=== PATIENT | female | born 1940 | race Caucasian/White ===

== ENCOUNTER 2018-11-20 11:06 | Emergency (ER) | payer OTHER ==
[2018-11-20] MEDS ORDERED: TETANUS & DIPHTHERIA TOX,ADULT 0.5 ML VIAL ONE (12:37)
--- NOTE | 2018-11-20 13:33 | RAD REPORT ---
EXAM DESCRIPTION: CT - [id number] - 11/20/2018 12:48 pm CLINICAL HISTORY: Fall, head and neck injury COMPARISON: None. TECHNIQUE: Axial 5 mm thick images of the head were obtained. Axial 2 mm thick images of the cervic al spine were obtained with sagittal and coronal reconstruction images generated and reviewed. All CT scans are performed using dose optimization technique as appropriate and may include automated exposure control or mA/KV adjustment according to patient size. FINDINGS: No intracranial hemorrhage, mass, edema or acute intracranial finding. No suspicion for acute infarct ion. No extra-axial fluid collections. Mastoid air cells and paranasal sinuses are clear. No globe or orbit abnormality seen. Nasal bone fracture is suspected but not fully imaged. Moderate atrophy and chronic ischemic changes are present. Ventricular size is in proportion. Approximately 20% wedging of the C5 body is noted age unknown. C3, C4 and C6 shows slight wedging as well. No subluxation abnormality. C4-5, C5-6 and C6-7 disc space narrowing present. Prominent facet j oint degenerative changes are present. No acute fracture lines are seen. No lytic, sclerotic or expan sile destructive process. No paraspinal mass or hematoma. IMPRESSION: Atrophy and chronic ischemic changes are present with no acute intracranial finding. Suspected nasal bone fracture with facial bones only partially imaged. Prominent cervical spine degenerative changes are present. There is wedging of the C3-C6 bodies most notable at C5. No acute fracture line seen. Posterior wall height is preserved and no encroachment in to the central canal. Wedge configuration is likely chronic. If the patient has persistent neck pain, MR imaging could be p erformed.
--- NOTE | 2018-11-20 13:56 | EDPHYS ---
Physician Documentation [facility] Name: Darlin Clark Age: 78 yrs Sex: Female : 1940 Arrival Date: 11/20/2018 Time: 11:07 Bed 2 Private MD: Deejay Marinelli ED Physician Ye Lambert HPI: 11/20 13:49 This 78 yrs old Female presents to ER via Wheelchair with complaints of Fall kdr Injury. 13:49 Details of fall: The patient fell from an upright position, while walking. Onset: The kdr symptoms/episode began/occurred suddenly, just prior to arrival. Associated injuries: The patient sustained Face, hands and knees. Severity of symptoms: At their worst the symptoms were mild, in the emergency department the symptoms are unchanged. The patient has not experienced similar symptoms in the past. The patient has not recently seen a physician. The patient states that she was coming home after a long walk and tripped on the sidewalk striking her face on the ground. She had no LOC or other injury.. Historical: - Allergies: 11:28 Codeine; iw - Home Meds: 11:28 Valium Oral [Active]; Celexa Oral [Active]; iw - PSHx: 11:28 bariatric surgery; Tubal ligation; iw - Immunization history:: Adult Immunizations up to date. - Social history:: Smoking status: Patient/guardian denies using tobacco, Patient/guardian denies using alcohol. - Immunization history: Last tetanus immunization: unknown. - Ebola Screening: : Patient negative for fever greater than or equal to 101.5 degrees Fahrenheit, and additional compatible Ebola Virus Disease symptoms Patient denies exposure to infectious person Patient denies travel to an Ebola-affected area in the 21 days before illness onset. ROS: 13:49 Constitutional: Negative for fever, chills, and weight loss, Eyes: Negative for injury, kdr pain, redness, and discharge, Neck: Negative for injury, pain, and swelling, Cardiovascular: Negative for chest pain, palpitations, and edema, Respiratory: Negative for shortness of breath, cough, wheezing, and pleuritic chest pain, Abdomen/GI: Negative for abdominal pain, nausea, vomiting, diarrhea, and constipation, Back: Negative for injury and pain, : Negative for injury, bleeding, discharge, and swelling, MS/Extremity: Negative for injury and deformity, Skin: Negative for rash, and discoloration - she does have multple abrasions ot her hands and knees along with her face and nose Neuro: Negative for headache, weakness, numbness, tingling, and seizure activity. Psych: Negative for depression, anxiety, suicide ideation, homicidal ideation, and hallucinations, Allergy/Immunology: Negative for hives, rash, and allergies, Endocrine: Negative for neck swelling, polydipsia, polyuria, polyphagia, and marked weight changes, Hematologic/Lymphatic: Negative for swollen nodes, abnormal bleeding, and unusual bruising. Exam: 13:49 Constitutional: This is a well developed, well nourished patient who is awake, alert, kdr and in no acute distress. Head/Face: Normocephalic, atraumatic. Eyes: Pupils equal round and reactive to light, extra-ocular motions intact. Lids and lashes normal. Conjunctiva and sclera are non-icteric and not injected. Cornea within normal limits. Periorbital areas with no swelling, redness, or edema. Neck: Trachea midline, no thyromegaly or masses palpated, and no cervical lymphadenopathy. Supple, full range of motion without nuchal rigidity, or vertebral point tenderness. No Meningismus. Chest/axilla: Normal chest wall appearance and motion. Nontender with no deformity. No lesions are appreciated. 13:49 ENT: Nose: Nasal septum: no septal hematoma appreciated. Vital Signs: 11:17 BP 129 / 72; Pulse 65; Resp 18; Temp 98.0(TE); Pulse Ox 98% on R/A; Weight 65.77 kg; hj Height 5 ft. 2 in. (157.48 cm); Pain 8/10; 11:17 Body Mass Index 26.52 (65.77 kg, 157.48 cm) [place] Coma Score: 11:17 Eye Response: spontaneous(4). Verbal Response: oriented(5). Motor Response: obeys commands(6). Total: 15. Trauma Score (Adult): 11:17 Eye Response: spontaneous(1); Verbal Response: oriented(1); Motor Response: obeys commands(2); Systolic BP: > 89 mm Hg(4); Respiratory Rate: 10 to 29 per min(4); [place] Score: 15; Trauma Score: 12 MDM: 13:49 Data reviewed: vital signs, nurses notes, radiologic studies. Counseling: I had a kdr detailed discussion with the patient and/or guardian regarding: the historical points, exam findings, and any diagnostic results supporting the discharge/admit diagnosis, radiology results, the need for outpatient follow up. 13:55 Patient medically screened. [facility] 11/20 12:18 Order name: CT Head C Spine; Complete Time: 13:49 kdr 11/20 12:19 Order name: Misc. 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 Exp: 08/11/2020. Lot #: [id number]. } Route: IM; Site: right deltoid; 12:36 Follow up: Response: No adverse reaction Disposition: 11/20/18 13:55 Discharged to Home. Impression: Other slipping, tripping and stumbling and falls, Fracture of nasal bones, Superficial injury of head. - Condition is Stable. - Discharge Instructions: Head Injury, Adult, Abrasion, [id number], Nasal Fracture, [id number]. - Prescriptions for Diclofenac Sodium 75 mg Oral Tablet, Delayed Release (E.C.) - take 1 tablet by ORAL route 2 times per day; 15 tablet. - Medication Reconciliation Form, Thank You Letter form. - Follow up: Deejay Marinelli MD; When: 2 - 3 days; Reason: If symptoms return, Further diagnostic work-up, Recheck today's complaints, Continuance of care, Re-evaluation by your physician. - Problem is new. - Symptoms have improved. Signatures: Dispatcher [employer] EDMS Ye Lambert MD MD kdr Flora White RN RN Yehuda Shepherd RN RN Corrections: (The following items were deleted from the chart) 14:28 13:55 11/20/2018 13:55 Discharged to Home. Impression: Other slipping, tripping and hj stumbling and falls; Fracture of nasal bones; Superficial injury of head. Condition is Stable. Forms are Medication Reconciliation Form, Thank You Letter, Antibiotic Education, Prescription Opioid Use. Follow up: Deejay Marinelli; When: 2 - 3 days; Reason: If symptoms return, Further diagnostic work-up, Recheck today's complaints, Continuance of care, Re-evaluation by your physician. Problem is new. Symptoms have improved. kdr
--- NOTE | 2018-11-20 13:56 | ER ---
Nurse's Notes [facility] Name: Darlin Clark Age: 78 yrs Sex: Female : 1940 Arrival Date: 11/20/2018 Time: 11:07 Bed 2 Private MD: Deejay Marinelli Diagnosis: Other slipping, tripping and stumbling and falls;Fracture of nasal bones;Superficial injury of head Presentation: 11/20 11:15 Presenting complaint: Patient states: was out walking on side walk, had walked 2 miles, iw was tired, stumbled over a crack in side walk, fell to face, and knees, denies LOC, not on blood thinners, swelling noted to bridge of nose, large abrasion to tip of nose, matted blood in hair but no identifiable laceration to head. Mechanism of Injury: Fall from standing position. Trauma event details: Injury occurred in the [facility], Injury occurred: at home. Injury occurred: November 20, 2018. 11:15 Acuity: CADE 3 iw 11:15 Method Of Arrival: Wheelchair iw 11:15 Transition of care: patient was not received from another setting of care. Onset of hj symptoms was November 20, 2018. 11:21 Risk Assessment: Do you want to hurt yourself or someone else? Patient reports no hj desire to harm self or others. Initial Sepsis Screen: Does the patient meet any 2 criteria? No. Patient's initial sepsis screen is negative. Does the patient have a suspected source of infection? No. Patient's initial sepsis screen is negative. Care prior to arrival: None. Triage Assessment: 11:15 General: Appears in no apparent distress. uncomfortable, Behavior is calm, cooperative, hj appropriate for age. Trauma Activation: Not Applicable Physician: ED Physician; Name: ; Notified At: ; Arrived At: Physician: General Surgeon; Name: ; Notified At: ; Arrived At: Physician: Radiology; Name: ; Notified At: ; Arrived At: Physician: Respiratory; Name: ; Notified At: ; Arrived At: Physician: Lab; Name: ; Notified At: ; Arrived At: Trauma Activation: Not Applicable Physician: ED Physician; Name: ; Notified At: ; Arrived At: Physician: General Surgeon; Name: ; Notified At: ; Arrived At: Physician: Radiology; Name: ; Notified At: ; Arrived At: Physician: Respiratory; Name: ; Notified At: ; Arrived At: Physician: Lab; Name: ; Notified At: ; Arrived At: Historical: - Allergies: : Codeine; iw - Home Meds: Valium Oral [Active]; Celexa Oral [Active]; iw - PSHx: : bariatric surgery; Tubal ligation; iw - Immunization history:: Adult Immunizations up to date. - Social history:: Smoking status: Patient/guardian denies using tobacco, Patient/guardian denies using alcohol. - Immunization history: Last tetanus immunization: unknown. - Ebola Screening: : Patient negative for fever greater than or equal to 101.5 degrees Fahrenheit, and additional compatible Ebola Virus Disease symptoms Patient denies exposure to infectious person Patient denies travel to an Ebola-affected area in the 21 days before illness onset. Screenin:24 Abuse screen: Denies threats or abuse. Denies injuries from another. Nutritional hj screening: No deficits noted. Tuberculosis screening: No symptoms or risk factors identified. Fall Risk Fall in past 12 months (25 points). Primary Survey: 11:18 NO uncontrolled hemorrhage observed. A: The patient is alert. Airway: patent, No hj supplemental oxygen in use on arrival. Oral cavity: gag reflex present, Trachea midline. Breathing/Chest: Respiratory pattern: regular, Respiratory effort: spontaneous, unlabored, Breath sounds: clear, Chest inspection: symmetrical rise and fall of the chest. Circulation: Cardiac rhythm: Heart tones present. Pulses: palpable . Skin color: pink, Skin temperature: warm, dry. Disability Alert. Exposure/Environment: All clothing and personal items were removed. Forensic evidence collection is not deemed to be indicated at this time. Items placed in patient belonging bag. There is evidence of uncontrolled external hemorrhage. Provider notified immediately. Methods to control bleeding applied. Obvious injury(ies) are noted at this time: nose, knees A warming method has been applied: A warm blanket has been provided to the patient. Reassessment Airway Airway Patent Oxygen No O2 Oral cavity +Gag reflex Trachea Midline Breathing/Chest Respiratory pattern Regular Respiratory effort Spontaneous Unlabored Breath sounds Clear Chest inspection Symmetrical Circulation Heart rhythm Sinus rhythm Heart tones Present Pulses Palpable Color Phil [place] Temperature Warm Dry Disability Alert. Secondary Survey: 11:23 HEENT: Face Nose: bleeding noted deformity noted bridge of nose and apex of the nose. hj Gastrointestinal: No deficits noted. : No signs and/or symptoms were reported regarding the genitourinary system. Musculoskeletal: Reports pain in right leg and left leg. Injury Description: Skin tears. Vital Signs: 11:17 BP 129 / 72; Pulse 65; Resp 18; Temp 98.0(TE); Pulse Ox 98% on R/A; Weight 65.77 kg; hj Height 5 ft. 2 in. (157.48 cm); Pain 8/10; 11:17 Body Mass Index 26.52 (65.77 kg, 157.48 cm) hj [place] Coma Score: 11:17 Eye Response: spontaneous(4). Verbal Response: oriented(5). Motor Response: obeys hj commands(6). Total: 15. Trauma Score (Adult): 11:17 Eye Response: spontaneous(1); Verbal Response: oriented(1); Motor Response: obeys hj commands(2); Systolic BP: > 89 mm Hg(4); Respiratory Rate: 10 to 29 per min(4); [place] Score: 15; Trauma Score: 12 ED Course: 11:07 Patient arrived in ED. rg4 11:08 Deejay Marinelli MD is Private Physician. rg4 11:10 Yehuda Shepherd, DOC is Primary Nurse. hj 11:21 Arm band placed on right wrist. hj 11:22 Patient has correct armband on for positive identification. Placed in gown. Bed in low hj position. Call light in reach. Side rails up X 1. Adult w/ patient. 11:23 Ye Lambert MD is Attending Physician. kdr 11:23 Thermoregulation: warm blanket given to patient. hj 11:23 Patient maintains SpO2 saturation greater than 95% on room air. hj 11:26 Triage completed. iw 12:45 CT completed. Patient tolerated procedure well. Patient moved to CT via stretcher. sw Patient moved back from CT. 12:48 CT Head C Spine In Process Unspecified. EDMS 13:53 Deejay Marinelli MD is Referral Physician. kdr 14:26 No provider procedures requiring assistance completed. Patient did not have IV access hj during this emergency room visit. 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 Exp: hj 08/11/2020. Lot #: [id number]. } Route: IM; Site: right deltoid; 12:36 Follow up: Response: No adverse reaction hj Intake: 14:27 PO: 50ml; Total: 50ml. hj Output: 14:27 Urine: 100ml (Voided); Total: 100ml. hj Outcome: 13:55 Discharge ordered by . kdr 14:26 Discharged to home ambulatory, with family. hj 14:26 Condition: stable 14:26 Discharge instructions given to patient, family, Instructed on discharge instructions, follow up and referral plans. medication usage, wound care, Demonstrated understanding of instructions, follow-up care, medications, wound care, Prescriptions given X 1. 14:27 Patient's length of stay was not longer than 2 hours. hj 14:28 Patient left the ED. hj Signatures: Dispatcher [employer] EDMS Ye Lambert MD MD kdr Williams, Irene, Gloria Brooke RN, Henry, RN RN hj Garcia, Rubi rg4
== END 2018-11-20 14:28 | disposition home or self-care (01) ==
LOC: ER 11:06
DX: S00.90XA Unspecified superficial injury of unspecified part of head, initial encounter (principal); S02.2XXA Fracture of nasal bones, initial encounter for closed fracture; W01.0XXA Fall on same level from slipping, tripping and stumbling without subsequent striking against object, initial encounter; Y93.01 Activity, walking, marching and hiking; Y92.480 Sidewalk as the place of occurrence of the external cause; Z23 Encounter for immunization
CPT/HCPCS: 70450; 72125; 90471; 90714; 99284

== ENCOUNTER 2021-10-07 11:54 | Inpatient (IN) | payer OTHER ==
[2021-10-07] MEDS ORDERED: METOPROLOL TARTRATE 5 MG/5 ML INJ IV ONE (12:28)
[2021-10-07] MEDS ORDERED: NA CHLORIDE 0.9% 1,000 ML ONE (12:28)
[2021-10-07 12:44] LABS: Absolute Lymphocytes (CBC) 1.4 K/uL (0.7-4.9); Lymphocytes % 17.2 % (15.3-44.8); RBC Red Blood Cell Count 4.66 M/uL (3.86-4.86)
[2021-10-07 12:53] LABS: Protime INR 0.94
[2021-10-07] MEDS ORDERED: ENOXAPARIN 60 MG/0.6 ML SQ ONE (13:00)
[2021-10-07] MEDS ORDERED: METOPROLOL TAR 25 MG TAB ONE (13:06)
[2021-10-07 13:38] LABS: Albumin 3.6 g/dL (3.4-5.0); Bilirubin Direct 0.1 mg/dL (0-0.2); Bilirubin Total 0.5 mg/dL (0.2-1.0); Protein, Total 7.4 g/dL (6.4-8.2); Troponin High Sensitivity 6.4 pg/mL (<58.9)
[2021-10-07 13:40] LABS: Magnesium 2.1 mg/dL (1.8-2.4); Potassium 4.5 mmol/L (3.5-5.1)
--- NOTE | 2021-10-07 14:28 | EDPHYS ---
Physician Documentation [facility] Name: Darlin Clark Age: 81 yrs Sex: Female : 1940 Arrival Date: 10/07/2021 Time: 11:56 Bed 8 Private MD: ED Physician Fransisco Denson HPI: 10/07 12:29 This 81 yrs old Female presents to ER via Ambulatory with complaints of Irregular Pulse.pm1 12:29 The patient presents with a history of irregular heart beat, elevated heart rate per pm1 neurologist at her office visit today. Context: The symptoms occur without known cause. Onset: The symptoms/episode began/occurred Possibly today but patient reports exertional dyspnea since April of last year that improved with rest. Duration: The patient or guardian reports multiple episodes. Modifying factors: The symptoms are aggravated by light activity, The symptoms are alleviated by rest. Associated signs and symptoms: Pertinent negatives: chest pain, dizziness. Severity of symptoms: in the emergency department the symptoms have improved. The patient has not experienced similar symptoms in the past. The patient has been recently seen by a physician: with different complaint(s), Patient was seeing a neurologist for tremors . Historical: - Allergies: 12:06 PENICILLINS; ap3 - Home Meds: 12:06 Celexa Oral as needed [Active]; Valium Oral [Active]; unknown memory medication ap3 [Active]; - PMHx: 12:06 tremors of unkown orgin; ap3 - Immunization history:: Client reports receiving the 2nd dose of the Covid vaccine, Flu vaccine is up to date. - Social history:: Smoking status: Patient denies any tobacco usage or history of. Patient uses alcohol, occasionally. ROS: 12:29 Constitutional: Negative for fever, chills, and weight loss. pm1 12:29 Abdomen/GI: Negative for abdominal pain, nausea, vomiting, diarrhea, and constipation, Back: Negative for injury and pain, MS/Extremity: Negative for injury and deformity, Skin: Negative for injury, rash, and discoloration, Neuro: Negative for headache, weakness, numbness, tingling, and seizure. 12:29 Cardiovascular: Positive for palpitations, Negative for chest pain, edema. 12:29 Respiratory: Positive for shortness of breath, on exertion. Negative for cough. 12:29 All other systems are negative. Exam: 12:29 Constitutional: This is a well developed, well nourished patient who is awake, alert, pm1 and in no acute distress. Head/Face: Normocephalic, atraumatic. 12:29 Back: No spinal tenderness. No costovertebral tenderness. Full range of motion. Skin: Warm, dry with normal turgor. Normal color with no rashes, no lesions, and no evidence of cellulitis. MS/ Extremity: Pulses equal, no cyanosis. Neurovascular intact. Full, normal range of motion. 12:29 Cardiovascular: Rate: tachycardic, Rhythm: irregular, Pulses: no pulse deficits are appreciated, Heart sounds: normal, normal S1and S2, Edema: is not appreciated. 12:29 Respiratory: Exam negative for acute changes, respiratory distress, shortness of breath, Breath sounds: are clear throughout. 12:29 Abdomen/GI: Inspection: abdomen appears normal, Palpation: abdomen is soft and non-tender, in all quadrants. 12:29 Neuro: Exam negative for acute changes, Orientation: is normal, Mentation: is normal, Motor: is normal, moves all fours. 12:29 Skin: Appearance: normal except for affected area, lesion(s), noted, and can be pm1 described as raised, ulcerated, 1.5 cm oval shaped lesion to left scapular area. Vital Signs: 12:03 BP 143 / 87; Pulse 115; Resp 16; Temp 97.9; Pulse Ox 97% ; Weight 61.23 kg; Height 5 ap3 ft. 1 in. (154.94 cm); 12:03 Body Mass Index 25.51 (61.23 kg, 154.94 cm) ap3 MDM: 12:12 Patient medically screened. pm1 12:13 Patient medically screened. [facility] 12:27 Data reviewed: vital signs. Data interpreted: Pulse oximetry: on room air is 97 %. pm1 Interpretation: normal. 12:29 ED course: Patient with heart rates between 80 to 140 in triage per RN therefore will pm1 give patient metoprolol IV and IV fluids. 12:30 ED course: Chads-vasc score = 3, will give lovenox. pm1 14:27 Counseling: I had a detailed discussion with the patient and/or guardian regarding: the pm1 historical points, exam findings, and any diagnostic results supporting the discharge/admit diagnosis, lab results, radiology results, the need for further work-up and treatment in the hospital. 14:51 Physician consultation: Deejay Marinelli MD was called at 14:26, was contacted at 14:51, pm1 regarding admission, consult, patient's condition, would like further tests performed, echocardiogram, in the emergency department to see patient at 14:51, Dr. Marinelli wants inpatient admission and consult with Dr. Bellamy. 17:31 Physician consultation: Deejay Marinelli MD would like medications started, Valium 5 mg pm1 PO TID for her tremors. 17:56 Physician consultation: Ignacio Bellamy MD regarding consult, patient's condition, would pm1 like medications started, Sotalol 80 BID, in the emergency department to see patient at 17:57. 18:12 ED course: Dr. Marinelli called back, changed Valium to 2 mg PO TID for tremors after pm1 verification with Dr. Bustillo . 10/07 12:29 Order name: Basic Metabolic Panel; Complete Time: 14:19 pm1 10/07 12:29 Order name: CBC with Diff; Complete Time: 13:16 pm1 10/07 12:29 Order name: LFT's; Complete Time: 14:19 pm1 10/07 12:29 Order name: Magnesium; Complete Time: 14:19 pm1 10/07 12:29 Order name: NT PRO-BNP; Complete Time: 14:19 pm1 10/07 12:29 Order name: PT-INR; Complete Time: 13:16 pm1 10/07 12:29 Order name: Troponin HS; Complete Time: 14:19 pm1 10/07 12:29 Order name: XRAY Chest (1 view); Complete Time: 15:10 pm1 10/07 13:16 Order name: COVID-19 SARS RT PCR (Document "Date of Onset" if Symptomatic); Complete pm1 Time: 16:23 10/07 14:21 Order name: Add On-Lab pm1 10/07 14:28 Order name: Thyroid Stimulating Hormone; Complete Time: 15:46 EDMS 10/08 04:06 Order name: CBC with Automated Diff EDMS 10/08 04:18 Order name: Basic Metabolic Panel EDMS 10/07 12:29 Order name: EKG; Complete Time: 12:30 pm1 10/07 12:29 Order name: Cardiac monitoring; Complete Time: 12:32 pm1 10/07 12:29 Order name: EKG - Nurse/Tech; Complete Time: 12:32 pm1 10/07 12:29 Order name: IV Saline Lock; Complete Time: 12:32 pm1 10/07 12:29 Order name: Labs collected and sent; Complete Time: 12:32 pm1 10/07 12:29 Order name: O2 Per Protocol; Complete Time: 12:32 pm1 10/07 12:29 Order name: O2 Sat Monitoring; Complete Time: 12:32 pm1 10/07 14:56 Order name: CONS Physician Consult EDMS Administered Medications: 12:31 Drug: Metoprolol 5 mg Route: IVP; Site: right antecubital; jl7 12:31 Drug: NS 0.9% 500 ml Route: IV; Rate: bolus; Site: right antecubital; jl7 12:58 Drug: Lovenox (enoxaparin) 1 mg/kg Route: Sub-Q; Site: abdomen; jl7 13:05 Drug: Metoprolol 25 mg Route: PO; jl7 Disposition Summary: 10/07/21 14:28 Hospitalization Ordered Hospitalization Status: Inpatient Admission pm1 Provider: Deejay Marinelli pm1 Condition: Stable pm1 Problem: new pm1 Symptoms: have improved pm1 Bed/Room Type: Standard pm1 Location: [facility] ER HOLD(10/07/21 17:06) Room Assignment: ERHOLD-(10/07/21 17:06) Diagnosis - Unspecified atrial fibrillation - new onset pm1 Forms: - Medication Reconciliation Form pm1 - SBAR form pm1 Addendum: 10/09/2021 18:45 Co-signature as Attending Physician, Fransisco Denson MD I agree with the assessment and c wilson plan of care. Signatures: Dispatcher [employer] EDMS Fransisco Denson MD MD cha Smirch, Shelby RN RN ss Renan Rendon, [employer] SAL[employer] FLOOR ASSOCIATE pm1 Timothy Lim RN RN jl7 Purvi Kennedy RN RN ap3 Corrections: (The following items were deleted from the chart) 10/07 12:09 12:06 Allergies: Codeine; ap3 ap3 17:06 14:28 Telemetry/MedSurg (Inpatient) pm1 ss 17:06 14:28 pm1 ss
--- NOTE | 2021-10-07 14:28 | ER ---
Nurse's Notes [facility] Name: Darlin Clark Age: 81 yrs Sex: Female : 1940 Arrival Date: 10/07/2021 Time: 11:56 Bed 8 Private MD: Diagnosis: Unspecified atrial fibrillation-new onset Presentation: 10/07 12:03 Chief complaint: Patient states: she was sent by her neurologist for suspected afib. ap3 patient reports the neurologist informed her that her pulse was 140 bpm in the office, and she might have A-Fib so she needs to be evaluated in the ED. Patient denies chest pain, dizziness, nausea and vomiting. However patient reports feeling slightly weak since receiving her second COVID vaccine in April of 2021. Coronavirus screen: At this time, the client does not indicate any symptoms associated with coronavirus-19. Ebola Screen: No symptoms or risks identified at this time. Initial Sepsis Screen: Does the patient meet any 2 criteria? HR > 90 bpm. No. Patient's initial sepsis screen is negative. Does the patient have a suspected source of infection? No. Patient's initial sepsis screen is negative. Risk Assessment: Do you want to hurt yourself or someone else? Patient reports no desire to harm self or others. Onset of symptoms was October 07, 2021. 12:03 Method Of Arrival: Ambulatory ap3 12:03 Acuity: CADE 2 ap3 Triage Assessment: 12:09 General: Appears in no apparent distress. comfortable, Behavior is calm, cooperative, ap3 appropriate for age. Pain: Denies pain. Neuro: Level of Consciousness is awake, alert, obeys commands, Oriented to person, place, time, situation, Gait is steady, Speech is normal. Cardiovascular: Denies chest pain, Patient's skin is warm and dry. Rhythm is irregular. Respiratory: Airway is patent Respiratory effort is even, unlabored. Historical: - Allergies: 12:06 PENICILLINS; ap3 - Home Meds: 12:06 Celexa Oral as needed [Active]; Valium Oral [Active]; unknown memory medication ap3 [Active]; - PMHx: 12:06 tremors of unkown orgin; ap3 - Immunization history:: Client reports receiving the 2nd dose of the Covid vaccine, Flu vaccine is up to date. - Social history:: Smoking status: Patient denies any tobacco usage or history of. Patient uses alcohol, occasionally. Screenin:10 Abuse screen: Denies threats or abuse. Nutritional screening: No deficits noted. ap3 Tuberculosis screening: No symptoms or risk factors identified. Fall Risk Fall in past 12 months (25 points). Secondary diagnosis (15 points) muscle tremors. Ambulatory Aid- None/Bed Rest/Nurse Assist (0 pts). Gait- Normal/Bed Rest/Wheelchair (0 pts) Mental Status- Oriented to own ability (0 pts). Vital Signs: 12:03 BP 143 / 87; Pulse 115; Resp 16; Temp 97.9; Pulse Ox 97% ; Weight 61.23 kg; Height 5 ap3 ft. 1 in. (154.94 cm); 12:03 Body Mass Index 25.51 (61.23 kg, 154.94 cm) ap3 ED Course: 11:56 Patient arrived in ED. ds1 12:06 Triage completed. ap3 12:11 Arm band placed on left wrist. 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 Pulse ox on. NIBP on. ap3 12:11 Patient maintains SpO2 saturation greater than 95% on room air. ap3 12:12 Renan Rendon NP is PHCP. pm1 12:12 Fransisco Denson MD is Attending Physician. pm1 12:31 Timothy Lim RN is Primary Nurse. jl7 14:27 Deejay Marinelli MD is Hospitalizing Provider. pm1 14:53 XRAY Chest (1 view) In Process Unspecified. EDMS 19:31 No provider procedures requiring assistance completed. Patient admitted, IV remains in lp1 place. 23:45 Primary Nurse role handed off by Timothy Lim RN tw5 23:47 Christine Dowd, DOC is Primary Nurse. tw5 10/08 07:25 Primary Nurse role handed off by Christine Dowd RN bd Administered Medications: 10/07 12:31 Drug: Metoprolol 5 mg Route: IVP; Site: right antecubital; jl7 12:31 Drug: NS 0.9% 500 ml Route: IV; Rate: bolus; Site: right antecubital; jl7 12:58 Drug: Lovenox (enoxaparin) 1 mg/kg Route: Sub-Q; Site: abdomen; jl7 13:05 Drug: Metoprolol 25 mg Route: PO; jl7 Outcome: 14:28 Decision to Hospitalize by Provider. pm1 19:31 Admitted to ER Hold. [facility] see [facility] for further documentation. lp1 19:31 Condition: stable 19:31 Instructed on the need for admit. 10/08 15:13 Patient left the ED. ap3 Signatures: Dispatcher [employer] EDMS Macarena Bailey Demi ds1 Christine Dowd, DOC RN lp1 Renan Rendon, FIRE INVESTIGATION [employer]IEUTENANT FIRE INVESTIGATION [employer]IEUTENANT pm1 Timothy Lim RN RN jl7 Purvi Kennedy RN RN ap3 Halle Bowser tw5 Corrections: (The following items were deleted from the chart) 10/07 12:09 12:06 Allergies: Codeine; ap3 ap3 12:11 12:03 Acuity: CADE 3 ap3 ap3
--- NOTE | 2021-10-07 15:02 | RAD REPORT ---
EXAM DESCRIPTION: RAD - Chest Single View - 10/07/2021 2:52 pm CLINICAL HISTORY: PALPITATIONS COMPARISON: None available TECHNIQUE: AP portable chest image was obtained 10/07/2021 2:52 pm . FINDINGS: No acute lung parenchymal process. Minimal interstitial stranding is believed to be baseli ne. Heart and vasculature are normal. No measurable pleural effusion and no pneumothorax. No acute jay ny abnormality seen. No acute aortic findings suspected. IMPRESSION: No acute cardiopulmonary process.
[2021-10-07] MEDS: SOTALOL HCL 80 MG TAB PO SCH (19:31)
[2021-10-07] MEDS: ENOXAPARIN 60 MG/0.6 ML SQ SCH (20:30)
[2021-10-07] MEDS: DIAZEPAM 2 MG TABLET PO SCH (21:00)
[2021-10-08 04:04] LABS: Absolute Lymphocytes (CBC) 1.7 K/uL (0.7-4.9); Hematocrit 35.2 % (36.0-45.0); Lymphocytes % 28.2 % (15.3-44.8); MPV 6.6 fL (7.6-11.3); RBC Red Blood Cell Count 4.01 M/uL (3.86-4.86)
[2021-10-08 04:18] LABS: Potassium 4.3 mmol/L (3.5-5.1)
[2021-10-08] MEDS: SOTALOL HCL 80 MG TAB PO SCH (06:00)
[2021-10-08 06:56] VITALS: TEMP 97.3
[2021-10-08] MEDS ORDERED: ASPIRIN EC 81 MG TAB PO SCH (09:00)
[2021-10-08] MEDS ORDERED: ASPIRIN EC 81 MG TAB PO ONE (09:07)
[2021-10-08] MEDS ORDERED: SOTALOL HCL 80 MG TAB ONE (09:08)
[2021-10-08] MEDS ORDERED: ENOXAPARIN 60 MG/0.6 ML SQ ONE (09:08)
[2021-10-08] MEDS: DIAZEPAM 2 MG TABLET PO SCH ×2 (09:37→14:00)
[2021-10-08] MEDS: ENOXAPARIN 60 MG/0.6 ML SQ SCH (09:37)
[2021-10-08] MEDS ORDERED: DIAZEPAM 2 MG TABLET ONE (09:38)
[2021-10-08 10:10] VITALS: O2SAT 100
--- NOTE | 2021-10-08 11:01 | EKG ---
Test Date: 2021-10-07 Test Time: 12:21:22 Buckle Inspector: ALP MEASUREMENT RESULTS: Intervals: Rate: 110 MN: QRSD: 68 QT: 344 QTc: 465 [place]: P: MN: QRS: -30 T: -1 INTERPRETIVE STATEMENTS: Atrial fibrillation with rapid ventricular response with premature ventricular or aberrantly conducted complexes Left axis deviation Nonspecific ST and T wave abnormality, probably digitalis effect Abnormal ECG No previous ECG available for comparison Electronically Signed On 10-08-21 10:57:29 CDT by Ignacio Bellamy
--- NOTE | 2021-10-08 11:02 | ECHO ---
HEIGHT: 5 ft 1 in WEIGHT: 134 lb 15.825 oz DATE OF STUDY: 10/08/[address]: Renan Rendon NP 2-DIMENSIONAL: YES M.MODE: YES DOPPLER: DENA COLOR FLOW: YES TDS: PORTABLE: YES DEFINITY: BUBBLE STUDY: DIAGNOSIS: NEW ONSET ATRIAL FIBRILLATION CARDIAC HISTORY: CATHERIZATION: NO SURGERY: NO PROSTHETIC VALVE: NO PACEMAKER: NO MEASUREMENTS (cm) DIASTOLIC (NORMALS) SYSTOLIC (NORMALS) IVSd 1.2 (0.6-1.2) LA Diam 2.9 (1.9-4.0) LVEF 71% LVIDd 3.3 (3.5-5.7) LVIDs 2.0 (2.0-3.5) %FS 39% LVPWd 1.2 (0.6-1.2) Ao Diam 2.6 (2.0-3.7) 2 DIMENSIONAL ASSESSMENT: RIGHT ATRIUM: NORMAL LEFT ATRIUM: NORMAL RIGHT VENTRICLE: NORMAL LEFT VENTRICLE: NORMAL TRICUSPID VALVE: NORMAL MITRAL VALVE: MITRAL ANNULAR CALCIFICATION PULMONIC VALVE: NOMRAL AORTIC VALVE: NORMAL PERICARDIAL EFFUSION: NONE AORTIC ROOT: NORMAL LEFT VENTRICULAR WALL MOTION: NORMAL DOPPLER/COLOR FLOW: NORMAL COMMENTS: MITRAL ANNULAR CALCIFICATION. NORMAL LEFT VENTRICULAR SIZE AND FUNCTION. NO EFFUSION. NORMAL LEFT ATRIAL SIZE. NO THROMBUS. TECHNOLOGIST: IRINA AQUINO
[2021-10-08 15:17] VITALS: BP 106/65
--- NOTE | 2021-10-09 03:30 | HP ---
Date of Admission: 10/07/2021 Subjective: The patient has been stable as far as her atrial fibrillation. No further episodes. Sh kodi states she feels back to baseline. She was seen by Cardiology who suggested the use of sotalol as an outpatient and Eliquis. She is to follow up with me in a week and with Cardiology in 2 weeks. Ayesha mariee will also need to be referred for a biopsy of her skin lesion. Review of the echocardiogram showin g some ST changes and possible valvular changes. The possibility of a stress test and/or catheteriza tion was also discussed with the patient. She was discharged with vital signs stable. In retrospect , she thinks she has had numerous episodes where she felt like she did yesterday, and probably had so me episodes of atrial fibrillation, paroxysmal. HR/MODL Voice ID: [id number]
--- NOTE | 2021-10-09 08:02 | PN ---
Date of Progress Note: 10/08/2021 Ms. Clark is 81, came in with new-onset atrial fibrillation, placed on sotalol 80 mg b.i.d. She co nverted to sinus rhythm. She is on Lovenox. Today, she is having no symptoms. Echocardiogram was n ormal without any wall motion abnormalities. Left atrial thrombus or left atrial size was normal. E jection fraction was normal. Ms. Clark should be on sotalol 80 b.i.d. She should be on low-dose E liquis 2.5 mg b.i.d. She can go home today. I will see her in the office soon. The case was discus sed with Dr. Marinelli. RANCHO/EVENS Voice ID: [id number] Report ID: [id number]
--- NOTE | 2021-10-09 09:17 | CON ---
Date of Consultation: 10/07/2021 Reason For Consultation: Atrial fibrillation. History Of Present Illness: Ms. Clark is an 81-year-old white woman without any past medical histo ry, comes in with atrial fibrillation after she was sent from Dr. Mix's Office. She has no card iac symptoms. Denied PND, orthopnea, pedal edema, palpitation, syncope, fever or chills. Denied any chest pain, nausea, vomiting. Her atrial fibrillation was rate controlled. Past Medical History: Negative. Allergies: TO PENICILLIN. Medications: At home include Celexa. Review of Systems: Negative. Social History: Negative. Family History: Negative. Physical Examination: General: She was very pleasant, alert and oriented x3, no acute distress, atrial fibrillation, rate of 90. HEENT: Negative. Neck: Supple with no bruit. Chest: Clear. Cardiac: Revealed atrial fibrillation. Abdomen: Benign. Extremities: Revealed no clubbing, cyanosis, or edema. Diagnostic Data: Normal except for a BNP of 2522. Impression And Plan: Atrial fibrillation probably new onset, rate of 90. No symptoms. Thyroid is n ormal. Echocardiogram is pending. I will continue Lovenox. I would put her on sotalol 80 mg 1 p.o. b.i.d. We will see what her echo judd ws. RANCHO/EVENS Voice ID: [id number] Report ID: [id number]
== END 2021-10-08 15:23 | disposition home health service (06) | DRG 310 ==
LOC: ER 11:54 → ERHOLD 14:53
PROVIDERS: ADMIT Family Medicine; ATTEND Family Medicine
DX: I48.0 Paroxysmal atrial fibrillation (principal); L98.9 Disorder of the skin and subcutaneous tissue, unspecified; Z88.0 Allergy status to penicillin; Z20.822 Contact with and (suspected) exposure to COVID-19
CPT/HCPCS: 36415; 71045; 80048; 80076; 83735; 83880; 84443; 84484; 85025; 85610; 93005; 93306; 96372; 96374; 99285; J1650; J7030; U0003